=== PATIENT | female | born 1945 | race Caucasian/White ===

== ENCOUNTER 2017-07-06 07:51 | Day surgery (SDC) | payer MEDICARE, OTHER ==
[~2017-07-06 07:51] MED LIST: SODIUM CHLORIDE 0.9% 1000ML 1,000 ML IV ONE
[2017-07-06 08:52] VITALS: BP 140/67
[2017-07-06] MEDS ORDERED: IBUP200C76 PO (09:03)
[2017-07-06] MEDS ORDERED: ASPI-555 PO (09:03)
[2017-07-06] MEDS ORDERED: OMEP20CA10 PO (09:03)
[2017-07-06] MEDS ORDERED: NAPR-1180 PO (09:03)
[2017-07-06] MEDS ORDERED: MVIT PO (09:03)
[2017-07-06] MEDS ORDERED: CA C1TAB86 PO (09:03)
[2017-07-06] MEDS ORDERED: ATOR10TA69 PO (09:03)
[2017-07-06] MEDS ORDERED: PROPOFOL 10 MG/ML 20ML VIAL IV ONE (09:30)
[2017-07-06 09:50] VITALS: BP 90/40
== END 2017-07-06 10:15 | disposition home or self-care (01) ==
LOC: DAH 07:51 → ENDO 07:51
PROVIDERS: ATTEND Internal Medicine Gastroenterology
DX: Z12.11 Encounter for screening for malignant neoplasm of colon (principal); D12.2 Benign neoplasm of ascending colon; K57.30 Diverticulosis of large intestine without perforation or abscess without bleeding; K21.9 Gastro-esophageal reflux disease without esophagitis; Z96.659 Presence of unspecified artificial knee joint; Z79.82 Long term (current) use of aspirin
CPT/HCPCS: 45380; 88305; A4606; J2704; J7030